=== PATIENT | female | born 1965 | race Caucasian/White ===

== ENCOUNTER 2017-10-22 14:18 | Outpatient (CLI) | payer BC ==
--- NOTE | 2017-10-22 15:01 | RAD ---
PA AND LATERAL VIEWS OF CHEST: Date: 10/22/17 HISTORY: Acute bronchitis. FINDINGS: The heart size is normal. The lungs are expanded without focal areas of consolidation, pneumothorax, or pleural effusions. There are degenerative changes in the spine. IMPRESSION: No radiographic evidence of acute cardiopulmonary process. POS: [facility]
== END 2017-10-22 14:19 | disposition home or self-care (01) ==
LOC: NAV RAD 14:18
PROVIDERS: ATTEND Family Medicine
DX: J20.9 Acute bronchitis, unspecified (principal)
CPT/HCPCS: 71046

== ENCOUNTER 2018-01-05 11:30 | Outpatient (CLI) | payer BC ==
--- NOTE | 2018-01-05 12:58 | RAD ---
CERVICAL SPINE THREE VIEWS: 01/05/2018 HISTORY: Muscle spasm of neck. FINDINGS: The C1 cervicothoracic junction is seen on the lateral view. Vertebral body heights and intervertebr al disk spaces are within normal limits. A few scattered minimal osteophytes are present. There is straightening of the normal cervical lordotic curvature. No fracture or subluxation is seen involvin g the cervical spine. Surgical clips overly the lower neck anteriorly. IMPRESSION: Mild degenerative changes in the cervical spine without fracture or subluxation visualized. POS: [facility]
== END 2018-01-05 11:31 | disposition home or self-care (01) ==
LOC: NAV RAD 11:30
PROVIDERS: ATTEND Family Medicine
DX: M62.838 Other muscle spasm (principal); M47.892 Other spondylosis, cervical region
CPT/HCPCS: 72040

== ENCOUNTER 2018-05-14 12:18 | Outpatient (CLI) | payer BC ==
--- NOTE | 2018-05-14 14:31 | RAD ---
THREE VIEWS LEFT ANKLE: Date: 05-14-18 History: Left foot and heel pain, ankle pain for one month. Patient stepped off porch and caught back of heel. Continued pain. FINDINGS: The ankle mortise is congruent. No fracture or dislocation is seen. Plantar and posterior calcaneal e nthesophytes are identified. IMPRESSION: No acute osseous abnormality. POS: [facility]
== END 2018-05-14 12:19 | disposition home or self-care (01) ==
LOC: NAV RAD 12:18
PROVIDERS: ATTEND Family Medicine
DX: M79.673 Pain in unspecified foot (principal)

== ENCOUNTER 2019-09-11 18:37 | Emergency (ER) | payer BC ==
[2019-09-11] MEDS ORDERED: Ondansetron ODT 4 MG TAB ONE (19:22)
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
== END 2019-09-11 20:20 | disposition home or self-care (01) ==
LOC: NAV ERS 18:37
DX: S09.90XA Unspecified injury of head, initial encounter (principal); S13.4XXA Sprain of ligaments of cervical spine, initial encounter; R11.2 Nausea with vomiting, unspecified; E03.9 Hypothyroidism, unspecified; K21.9 Gastro-esophageal reflux disease without esophagitis; G43.909 Migraine, unspecified, not intractable, without status migrainosus; F41.9 Anxiety disorder, unspecified; F43.10 Post-traumatic stress disorder, unspecified; F17.210 Nicotine dependence, cigarettes, uncomplicated; Z79.899 Other long term (current) drug therapy; V40.5XXA Car driver injured in collision with pedestrian or animal in traffic accident, initial encounter
CPT/HCPCS: 70450; 72125; Q0162

== ENCOUNTER 2019-11-29 19:25 | Emergency (ER) | payer BC, OTHER ==
[2019-11-29 20:29] LABS: #Basophils 0.1 thou/uL (0.0-0.2); #Eosinphils 0.2 thou/uL (0.0-0.7); #Lymphocytes 3.6 thou/uL (1.20-3.40); #Monocytes 0.5 thou/uL (0.11-0.59); #Neutrophils 8.3 thou/uL (1.40-6.50); %Basophils 1.1 % (0.0-1.0); %Eosinophils 1.4 % (0.0-10.0); %Lymphocytes 28.4 % (21.0-51.0); %Monocytes 4.1 % (0.0-10.0); Hemoglobin 13.8 g/dL (12.0-16.0); Mean Corpuscular HGB CONC 31.3 g/dL (32.0-36.0); Mean Corpuscular Hemoglobin 30.6 pg (27.0-31.0); Mean Corpuscular Volume 97.7 fL (78.0-98.0); Platelet Count 305 thou/uL (130-400); RBC Distribution Width 12.8 % (11.5-14.5); Red Blood Cell (RBC) Count 4.51 mill/uL (4.20-5.40); White Blood Cell (WBC) Count 12.7 thou/uL (4.8-10.8)
[2019-11-29 20:48] LABS: Anion Gap 15 mmol/L (10-20); BUN (Urea Nitrogen) 9 mg/dL (9.8-20.1); CK (CPK) 116 U/L (29-168); Calc. Creatinine Clearance 0 mL/min (70-130); Calcium 9.6 mg/dL (7.8-10.44); Carbon Dioxide 21 mmol/L (22-29); Chloride 108 mmol/L (98-107); Estimated GFR-MDRD 75; Glucose 96 mg/dL (70-105); Potassium 3.9 mmol/L (3.5-5.1); Sodium 140 mmol/L (136-145)
--- NOTE | 2019-11-29 21:10 | RAD ---
CHEST ONE VIEW: 11/29/19 INDICATION: Chest pain and left shoulder pain. COMPARISON: Prior exam dated 10/22/17. FINDINGS: Lungs are clear. Heart size is within normal limits for the exam technique. No pleural effusion or pn eumothorax is evident. No acute osseous abnormality is noted. IMPRESSION: No acute cardiopulmonary abnormality. POS: [facility]
== END 2019-11-29 21:00 | disposition home or self-care (01) ==
LOC: NAV ERS 19:25
DX: M25.512 Pain in left shoulder (principal); R07.89 Other chest pain; E03.9 Hypothyroidism, unspecified; K21.9 Gastro-esophageal reflux disease without esophagitis; F43.10 Post-traumatic stress disorder, unspecified; F17.210 Nicotine dependence, cigarettes, uncomplicated
CPT/HCPCS: 71045; 80048; 82550; 84484; 85025; 93005

== ENCOUNTER 2019-12-13 15:26 | Outpatient (CLI) | payer BC ==
--- NOTE | 2019-12-13 16:23 | RAD ---
EXAM: CHEST TWO VIEWS: 12/13/19 HISTORY: Pneumonia due to infectious organism. COMPARISON: 11/29/19. FINDINGS: Heart size is within normal limits. The lungs are clear. No confluent pneumonia, overt edema, or ple ural effusion. IMPRESSION: No acute intrathoracic disease. Mild atherosclerosis of the aorta. POS: [facility]
== END 2019-12-13 15:27 | disposition home or self-care (01) ==
LOC: NAV RAD 15:26
PROVIDERS: ATTEND Family Medicine
DX: J18.9 Pneumonia, unspecified organism (principal); I70.0 Atherosclerosis of aorta
CPT/HCPCS: 71046

== ENCOUNTER 2020-10-15 11:17 | Outpatient (CLI) | payer BC | END 2020-10-15 11:18 | disposition home or self-care (01) | LOC: NAV RAD 11:17 | PROVIDERS: ATTEND Family Medicine | DX: Z01.818 Encounter for other preprocedural examination (principal) | CPT/HCPCS: 71046 ==

== ENCOUNTER 2021-06-11 14:23 | Outpatient (CLI) | payer BC | END 2021-06-11 14:24 | disposition home or self-care (01) | LOC: NAV RAD 14:23 | PROVIDERS: ATTEND Family Medicine | DX: R07.81 Pleurodynia (principal) ==

== ENCOUNTER 2023-01-30 23:51 | Emergency (ER) | payer BC ==
[2023-01-31] MEDS ORDERED: Prochlorperazine 10 MG/2 ML VIAL ONE (00:23)
[2023-01-31] MEDS ORDERED: Ketorolac Tromethamine 60 MG/2 ML VIAL ONE (00:23)
[2023-01-31] MEDS ORDERED: diphenhydrAMINE 50 MG/ML VIAL ONE (00:23)
== END 2023-01-31 01:09 | disposition home or self-care (01) ==
LOC: NAV ERS 23:51
DX: G43.909 Migraine, unspecified, not intractable, without status migrainosus (principal); E03.9 Hypothyroidism, unspecified; K21.9 Gastro-esophageal reflux disease without esophagitis; F17.210 Nicotine dependence, cigarettes, uncomplicated; Z79.01 Long term (current) use of anticoagulants
CPT/HCPCS: 96372; 99283; J0780; J1200; J1885